=== PATIENT | female | born 1935 ===

== ENCOUNTER 2025-05-22 15:47 | Emergency (ER) | payer OTHER ==
[~2025-05-22] VITALS: Ht 152.4 cm; Wt 77.1 kg
[2025-05-22] MEDS ORDERED: PEPCID AC20 MG PO ×2 (16:09→20:19)
[2025-05-22] MEDS ORDERED: 8HR ARTHRITIS650 M1 PO (16:09)
[2025-05-22] MEDS ORDERED: IRBESARTAN150 MG PO (16:10)
[2025-05-22] MEDS ORDERED: TIROSINT50 MCG PO (16:10)
[2025-05-22] MEDS ORDERED: CEFTRIAXONE SODIUM 1,000 MG in DEXTROSE 5 % IN WATER 100 ML IV ONE (16:45)
[2025-05-22] MEDS ORDERED: KETOROLAC TROMETHAMINE 15 MG VIAL IU ONE (16:45)
[2025-05-22] MEDS ORDERED: FAMOTIDINE/PF 20 MG in 0.9 % SODIUM CHLORIDE 8 ML IV PUSH ONE (16:45)
[2025-05-22] MEDS ORDERED: ACETAMINOPHEN 500 MG GEL..CAP PO ONE ×2 (16:45→16:47)
[2025-05-22] MEDS ORDERED: KETOROLAC TROMETHAMINE 30 MG VIAL ONE (16:46)
[2025-05-22] MEDS ORDERED: CEFTRIAXONE SODIUM 1,000 MG VIAL ONE (16:47)
[2025-05-22] MEDS ORDERED: FAMOTIDINE/PF 20 MG/2 ML VIAL ONE (16:47)
[2025-05-22 17:17] LABS: BASO % 0.5 % (0.1-1.2); EOS # 0.99 (0.04-0.54); EOS % 11.9 % (0.7-7.0); LYMPH # 3.03 (1.18-3.74); LYMPH % 36.5 % (19.3-53.1); MEAN PLATELET VOLUME 9.70 fl (9.4-12.4); MONO # 0.63 (0.24-0.82); MONO % 7.6 % (4.7-12.5); NEUT # 3.60 (1.56-6.13); NEUT % 43.3 % (34.0-71.1); RED CELL DISTRIBUTION WIDTH 14.5 % (11.6-14.4)
[2025-05-22 17:19] LABS: ERYTHROCYTE SEDIMENTATION RATE 34 mm/hr (0-30)
[2025-05-22 17:43] LABS: ALT/SGPT 26.0 U/L (12-78); AST/SGOT 19.0 U/L (15-37); BILIRUBIN TOTAL 0.41 mg/dL (0.3-1.2); BUN CREA RATIO 38.0 (7.0-25.0); CREATININE SERUM 0.73 mg/dL (0.55-1.02); GFR 75.06; GLOBULINA 3.9 G/DL (2.4-3.5); GLUCOSE FASTING 96.0 mg/dL (65-100); OSMOLALITY SERUM 290.0 MOSM/KG (275-295)
[2025-05-22 18:00] LABS: URINE APPEARANCE Clear; URINE BILIRRUBIN Negative (NEGATIVE); URINE BLOOD Negative; URINE COLOR Yellow; URINE GLUCOSE Negative (NEGATIVE); URINE KETONE Negative (NEGATIVE); URINE LEUKOCYTE Trace; URINE NITRATE Negative; URINE PROTEIN Negative (NEGATIVE); URINE UROBILINOGEN 0.2 E.U./dl
[2025-05-22 18:02] LABS: URINE BACTERIA 284.2 uL (0.0-1933); URINE EPITHELIAL CELLS 19.0 uL (0.0-38.8); URINE RBC 9.3 uL (0.0-20.8); URINE WBC 12.4 uL (0.0-23.2)
[2025-05-22 18:28] LABS: URINE CAST 0.00 uL (0.0-1.40)
[2025-05-22] MEDS ORDERED: INTESTINEX680 M1 PO (20:19)
[2025-05-22] MEDS ORDERED: AMOX-CLAV 875-1 EACH PO (20:19)
== END 2025-05-22 20:35 | disposition home or self-care (01) ==
LOC: ER 15:48
PROVIDERS: General Practice
DX: L03.116 Cellulitis of left lower limb (principal)
CPT/HCPCS: 36415; 73630; 96365; 99283; J0696; J1885; J3490